=== PATIENT | female | born 1955 | race Caucasian/White ===

== ENCOUNTER 2022-04-02 02:45 | Emergency (ER) | payer MEDICARE ==
--- NOTE | 2022-04-02 02:49 | ERPHSYRPT ---
- History of Present Illness Time Seen by Provider: 04/02/22 02:48 Historian: patient, family Exam Limitations: no limitations Physician History: This is a 67-year-old overweight white female with a history of diabetes, elevated cholesterol and gastroesophageal reflux disease on Eliquis who presents with generalized abdominal pain but worse in the upper abdomen, that began at the time she was going to bed. She has never had anything like this before per her report. 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 Patient has associated nausea but no vomiting. She denies diarrhea. She does not have chest pain or shortness of breath. She has not had a fever. Timing/Duration: yesterday Activities at Onset: none Quality: aching, pressure Abdominal Pain Onset Location: generalized abdomen Severity of Pain-Max: moderate Severity of Pain-Current: moderate Associated Symptoms: nausea, No chest pain, No shortness of breath Previous symptoms: no prior history, no recent treatment Allergies/Adverse Reactions: No Known Drug Allergies Allergy (Verified 04/02/22 03:57) Home Medications: Albuterol Sulfate [Albuterol Sulfate Hfa] 2 puff PO Q4-6HPRN PRN 04/02/22 [History] Apixaban [Eliquis 5 mg Tablet] 1 tab PO BID 04/02/22 [History] Atorvastatin Calcium [Lipitor 40Mg] 1 tab PO HS 04/02/22 [History] Buspirone HCl 5 mg [Buspar 5 mg] 10 mg PO BID 04/02/22 [History] Cyclobenzaprine HCl 10 mg [Cyclobenzaprine 10 MG] 1 tab PO TID PRN 04/02/22 [History] Empagliflozin [Jardiance] 1 tab PO DAILY 04/02/22 [History] PANTOPRAZOLE 40 mg Tablet [Protonix 40MG Tablet] 1 tab PO DAILY 04/02/22 [History] Pregabalin [Lyrica] 1 cap PO BID 04/02/22 [History] atenoloL [Atenolol] 1 tab PO DAILY 04/02/22 [History] Travel Risk - International Travel Have you traveled outside of the country in past 3 weeks: No - Coronavirus Screening Are you exhibiting any of the following symptoms?: No Close contact with a COVID-19 positive Pt in past 14-21 Days: No - Review of Systems Constitutional: No Symptoms Eyes: No Symptoms Ears, Nose, & Throat: No Symptoms Respiratory: No Symptoms Cardiac: No Symptoms Abdominal/Gastrointestinal: Abdominal Pain, Nausea Genitourinary Symptoms: No Symptoms Musculoskeletal: No Symptoms Skin: No Symptoms Neurological: No Symptoms Psychological: No Symptoms Endocrine: No Symptoms Hematologic/Lymphatic: No Symptoms Immunological/Allergic: No Symptoms All Other Systems: Reviewed and Negative - Past Medical History Pertinent Past Medical History: Yes - Past Surgical History Past Surgical History: Yes - Nursing Vital Signs Nursing Vital Signs: Initial Vital Signs Temperature 97.7 F 04/02/22 03:07 Pulse Rate 69 04/02/22 03:07 Respiratory Rate 20 04/02/22 03:07 Blood Pressure 130/85 04/02/22 03:07 O2 Sat by Pulse Oximetry 99 04/02/22 03:07 Pain Scale Pain Intensity 10 - Physical Exam General Appearance: mild distress, alert, anxiety, obese Eye Exam: PERRL/EOMI, eyes nml inspection Ears, Nose, Throat Exam: normal ENT inspection, moist mucous membranes Neck Exam: normal inspection, non-tender, supple, full range of motion Respiratory Exam: normal breath sounds, lungs clear, airway intact, No chest tenderness, No respiratory distress Cardiovascular Exam: regular rate/rhythm, normal heart sounds, normal peripheral pulses Gastrointestinal/Abdomen Exam: soft, normal bowel sounds, tenderness (Genera lized), guarding (Generalized to palpation), No rebound Pelvic Exam: not done Rectal Exam: not done Back Exam: normal inspection, normal range of motion, No CVA tenderness, No vertebral tenderness Extremity Exam: normal inspection, normal range of motion, pelvis stable Neurologic Exam: alert, oriented x 3, cooperative, 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, normal mood/affect, nml cerebellar function, nml station & gait, sensation nml Skin Exam: normal color, warm, dry Lymphatic Exam: No adenopathy SpO2 Interpretation: normal O2 Delivery: Room Air - Course Nursing assessment & vital signs reviewed: Yes Ordered Tests: Active Orders 24 hr Category Date Time Status IV Insertion STAT Care 04/02/22 03:06 Active ABDOMEN AND PELVIS W/0 CONTRAS [CT] Stat Exams 04/02/22 03:20 Taken AMYLASE Stat Lab 04/02/22 03:28 Completed CBC W DIFF Stat Lab 04/02/22 03:28 Completed CMP Stat Lab 04/02/22 03:28 Completed CULTURE,URINE Stat Lab 04/02/22 03:28 Received LIPASE Stat Lab 04/02/22 03:28 Completed UA W/RFX CULTURE Stat Lab 04/02/22 03:28 Completed Medication Summary Discontinued Medications Generic Name Dose Route Start Last Admin Trade Name Bernardo PRN Reason Stop Dose Admin Hydromorphone HCl 0.5 mg 04/02/22 03:06 04/02/22 03:28 Hydromorphone 1 Mg/1ml Inj 1 Mg/Ml Syringe IV 04/02/22 03:07 0.5 mg STAT ONE Administration Hydromorphone HCl Confirm 04/02/22 03:17 Hydromorphone 1 Mg/1ml Inj 1 Mg/Ml Syringe Administered 04/02/22 03:18 Dose 1 mg .ROUTE .STK-MED ONE Hydromorphone HCl 0.5 mg 04/02/22 04:09 04/02/22 04:13 Hydromorphone 1 Mg/1ml Inj 1 Mg/Ml Syringe IV 04/02/22 04:10 0.5 mg STAT ONE Administration Hydromorphone HCl Confirm 04/02/22 04:12 Hydromorphone 1 Mg/1ml Inj 1 Mg/Ml Syringe Administered 04/02/22 04:13 Dose 1 mg .ROUTE .STK-MED ONE Sodium Chloride 1,000 mls @ 999 mls/hr 04/02/22 03:06 04/02/22 04:40 Sodium Chloride 0.9% 1000 Ml IV 04/02/22 04:06 Infused .Q1H1M STA Infusion Sodium Chloride Confirm 04/02/22 03:17 Sodium Chloride 0.9% 1000 Ml Administered 04/02/22 03:18 Dose 1,000 mls @ ud .ROUTE .STK-MED ONE Sodium Chloride 1,000 mls @ 999 mls/hr 04/02/22 05:10 04/02/22 05:18 Sodium Chloride 0.9% 1000 Ml IV 04/02/22 06:10 999 mls/hr .Q1H1M STA Administration Sodium Chloride Confirm 04/02/22 05:13 Sodium Chloride 0.9% 1000 Ml Administered 04/02/22 05:14 Dose 1,000 mls @ ud .ROUTE .STK-MED ONE Metronidazole Confirm 04/02/22 04:39 Metronidazole 500 Mg Tablet Administered 04/02/22 04:40 Dose 500 mg .ROUTE .STK-MED ONE Metronidazole 500 mg 04/02/22 04:41 04/02/22 04:42 Metronidazole 500 Mg Tablet PO 04/02/22 04:42 500 mg STAT ONE Administration Ondansetron HCl 4 mg 04/02/22 03:06 04/02/22 03:25 Ondansetron Hcl 4 Mg/2 Ml Vial IV 04/02/22 03:07 4 mg STAT ONE Administration Ondansetron HCl Confirm 04/02/22 03:17 Ondansetron Hcl 4 Mg/2 Ml Vial Administered 04/02/22 03:18 Dose 4 mg .ROUTE .[facility] ONE Lab/Rad Data: Laboratory Result Diagrams 04/02/22 03:28 04/02/22 03:28 Laboratory Results 04/02/22 04/02/22 04/02/22 Range/Units 03:28 03:28 03:28 WBC 8.8 (4.0-10.5) x10^3/uL RBC 4.60 (4.1-5.4) x10^6/uL Hgb 12.4 (12.0-16.0) g/dL Hct 39.6 (35-47) % MCV 86.1 (78-100) fL MCH 27.0 (26-32) pg MCHC 31.3 L (32-36) g/dL RDW 13.1 (11.5-14.0) % Plt Count 227 (150-450) x10^3/uL MPV 8.9 (7.5-11.0) fL Gran % 71.5 H (36.0-66.0) % Immature Gran % (Auto) 0.3 (0.00-0.4) % Nucleat RBC Rel Count 0.0 (0.00-0.1) % Eos # (Auto) 0.07 (0-0.5) x10^3/uL Immature Gran # (Auto) 0.03 (0.00-0.03) x10^3u/L Absolute Lymphs (auto) 1.72 (1.0-4.6) x10^3/uL Absolute Monos (auto) 0.67 (0.0-1.3) x10^3/uL Absolute Nucleated RBC 0.00 (0.00-0.01) x10^3u/L Lymphocytes % 19.5 L (24.0-44.0) % Monocytes % 7.6 (0.0-12.0) % Eosinophils % 0.8 (0.00-5.0) % Basophils % 0.3 (0.0-0.4) % Absolute Granulocytes 6.31 (1.4-6.9) x10^3/uL Basophils # 0.03 (0-0.4) x10^3/uL Sodium 141 (137-145) mmol/L Potassium 3.8 (3.5-5.1) mmol/L Chloride 104 (98-107) mmol/L Carbon Dioxide 31 H (22-30) mmol/L Anion Gap 9.8 (5-15) MEQ/L BUN 14 (7-17) mg/dL Creatinine 0.66 (0.52-1.04) mg/dL Estimated GFR > 60.0 ML/MIN Glucose 123 H (74-106) mg/dL Calcium 9.6 (8.4-10.2) mg/dL Total Bilirubin 1.10 (0.2-1.3) mg/dL AST 39 H (14-36) U/L ALT 52 H (0-35) U/L Alkaline Phosphatase 129 H (38-126) U/L Serum Total Protein 7.1 (6.3-8.2) g/dL Albumin 4.0 (3.5-5.0) g/dL Amylase 49 (30-110) U/L Lipase 57 (23-300) U/L Urinalys Dipstick Clnc MAIN LAB Urine Color YELLOW (YELLOW) Urine Appearance CLEAR (CLEAR) Urine pH 6.5 (5-6) Ur Specific [place] 1.015 (1.005-1.025) POC Urine Protein Conf NEGATIVE (Negative) Urine Ketones NEGATIVE (NEGATIVE) Urine Nitrite NEGATIVE (NEGATIVE) Urine Bilirubin NEGATIVE (NEGATIVE) Urine Urobilinogen 0.2 (0-1) mg/dL Urine Leukocytes SMALL (NEGATIVE) Urine WBC (Auto) 16-25 (0-5) /HPF Urine RBC (Auto) 3-5 (0-2) /HPF U Epithel Cells (Auto) NONE (FEW) /HPF Urine Bacteria (Auto) RARE (NEGATIVE) /HPF Urine RBC SMALL (0-5) Bubba/ul Urine Mucus (Auto) SLIGHT (NEGATIVE) /HPF Ur Culture Indicated? YES Urine Glucose 500 (NEGATIVE) mg/dL - Progress Progress: improved, pain not gone completely, re-examined Progress Note: 04/02/22 06:16 CAT scan of the abdomen pelvis shows enteritis without evidence of obstruction. There is some fluid in the pelvis. There is no evidence of any perforation or abscess. Counseled pt/family regarding: lab results, diagnosis, need for follow-up, rad results - Departure Departure Disposition: Home Clinical Impression: Enteritis, UTI (urinary tract infection) Condition: Stable Critical Care Time: No Referrals: JAYLIN BHARDWAJ FNP [Primary Care Provider] - Follow up/PCP as directed Additional Instructions: Drink plenty of fluids. Take your antibiotics as prescribed. Follow-up with your primary care physician for further evaluation management. Return to the emergency department if your symptoms worsen. Start off with clear liquid diet and slowly advance your diet to a regular diet. However, once at your regular diet, try to avoid fatty greasy spicy foods. Prescriptions: Ondansetron ODT 4 MG [Zofran Odt 4 mg] 4 mg PO Q6H PRN PRN #10 tablet PRN Reason: Vomiting Hydrocodone/APAP 5/325 [[place] 5/325 mg] 1 each PO Q8H PRN PRN #6 tablet MDD 3 PRN Reason: Pain Ciprofloxacin [Cipro 500 MG] 500 mg PO BID #14 tablet Metronidazole 500 mg [Flagyl 500 MG] 500 mg PO TID #21 tablet
[2022-04-02] MEDS ORDERED: Sodium Chloride 0.9% 1000 ML 1,000 ML IV STA ×2 (03:06→05:10)
[2022-04-02] MEDS ORDERED: Hydromorphone 1 mg/ml Injection IV ONE ×2 (03:06→04:09)
[2022-04-02] MEDS ORDERED: Zofran 4 MG/2 ML VIAL IV ONE (03:06)
[2022-04-02] MEDS ORDERED: Zofran 4 MG/2 ML VIAL ONE (03:17)
[2022-04-02] MEDS ORDERED: Hydromorphone 1 mg/ml Injection ONE ×2 (03:17→04:12)
[2022-04-02] MEDS ORDERED: Sodium Chloride 0.9% 1000 ML 1,000 ML ONE ×2 (03:17→05:13)
[2022-04-02 03:30] LABS: Absolute Neutrophil Ct (ANC) 6.31 x10^3/uL (1.4-6.9); Basophil (Absolute #) 0.03 x10^3/uL (0-0.4); Eosinophil % 0.8 % (0.00-5.0); Eosinophil (Absolute #) 0.07 x10^3/uL (0-0.5); Hematocrit 39.6 % (35-47); Hemoglobin 12.4 g/dL (12.0-16.0); Lymphocyte (Absolute #) 1.72 x10^3/uL (1.0-4.6); Lymphocytes % 19.5 % (24.0-44.0); Mean Cell Volume 86.1 fL (78-100); Mean Corpuscular Hgb Concent. 31.3 g/dL (32-36); Mean Platelet Volume 8.9 fL (7.5-11.0); Monocyte (Absolute #) 0.67 x10^3/uL (0.0-1.3); Monocytes % 7.6 % (0.0-12.0); Neutrophil % 71.5 % (36.0-66.0); Platelet Count 227 x10^3/uL (150-450); Red Cell Distribution Width 13.1 % (11.5-14.0); White Blood Count 8.8 x10^3/uL (4.0-10.5)
[2022-04-02 03:34] LABS: Appearance CLEAR (CLEAR); Bilirubin NEGATIVE (NEGATIVE); Dipstick done @ ? MAIN LAB; Glucose 500 mg/dL (NEGATIVE); Ketones NEGATIVE (NEGATIVE); Nitrite NEGATIVE (NEGATIVE); Ph 6.5 (5-6); Protein,Urine Dip NEGATIVE (Negative); RBC SMALL Ery/ul (0-5); Specific Gravity 1.015 (1.005-1.025); Urobilinogen 0.2 mg/dL (0-1)
[2022-04-02 03:37] LABS: Bacteria RARE /HPF (NEGATIVE); Mucus SLIGHT /HPF (NEGATIVE)
[2022-04-02 03:38] LABS: Urine Cultured Indicated? YES
[2022-04-02 03:44] LABS: ALKALINE PHOSPHATASE 129 U/L (38-126); AMYLASE 49 U/L (30-110); ANION GAP 9.8 MEQ/L (5-15); BLOOD UREA NITROGEN 14 mg/dL (7-17); CHLORIDE 104 mmol/L (98-107); Calcium 9.6 mg/dL (8.4-10.2); Carbon Dioxide 31 mmol/L (22-30); Creatinine 1 0.66 mg/dL (0.52-1.04); EST GLOMERULAR FILTRATION RATE > 60.0 ML/MIN; Glucose 123 mg/dL (74-106); LIPASE 57 U/L (23-300); Potassium 3.8 mmol/L (3.5-5.1); SGOT/AST 39 U/L (14-36); SGPT/ALT 52 U/L (0-35); SODIUM 141 mmol/L (137-145); Total Protein 7.1 g/dL (6.3-8.2)
[2022-04-02] MEDS ORDERED: Flagyl 500 MG ONE (04:39)
[2022-04-02] MEDS ORDERED: Flagyl 500 MG PO ONE (04:41)
[2022-04-02] MEDS ORDERED: NORCO 5/325 MG PO ONE ×2 (06:21→06:22)
[2022-04-02] MEDS ORDERED: Levofloxacin 500 MG Tablet PO ONE (06:21)
[2022-04-02] MEDS ORDERED: Levofloxacin 500 MG Tablet ONE (06:24)
[2022-04-02] MEDS ORDERED: NORCO 5/325 MG ONE (06:24)
[2022-04-02 06:31] VITALS: BP 111/65; PULSE 69; O2SAT 95
--- NOTE | 2022-04-02 08:06 | XRAY ---
Indication: General abdomen pain. Multiple contiguous axial images obtained through the abdomen and pelvis without contrast. Comparison: None Lung bases demonstrates minimal bilateral dependent atelectasis and small left lower lobe calcified granuloma. Heart not enlarged. Noncontrasted stomach and bowel loops appear nonobstructed. Appendix not visualized. Ileal bowel loops and terminal ileum demonstrates mild fluid distended with bowel wall thickening/stranding favoring enteritis. Crohn's disease can have a similar appearance. Tiny free fluid but no walled off fluid collection or free air. Scattered colonic diverticulosis. Previous hysterectomy and cholecystectomy. Diffuse fatty liver and tiny splenic calcified granulomas. Remaining liver, pancreas, spleen, adrenal glands, kidneys, ureters, and bladder are unremarkable for noncontrast exam. Minimal scattered aortic calcifications without AAA. Osseous structures intact with mild degenerative changes throughout the spine. Impression: 1. Fluid distended ileal bowel loops with bowel wall thickening/stranding including terminal ileum favoring enteritis. Crohn's disease also offered for clinical consideration. 2. Fatty liver, chronic bony findings, and old granulomatous disease. Comment: Preliminary interpretation made by [facility]. No critical discrepancy.
== END 2022-04-02 06:47 | disposition home or self-care (01) ==
LOC: ED 02:45
DX: K52.9 Noninfective gastroenteritis and colitis, unspecified (principal); N39.0 Urinary tract infection, site not specified; R10.84 Generalized abdominal pain; R11.0 Nausea; E11.9 Type 2 diabetes mellitus without complications; E78.5 Hyperlipidemia, unspecified; Z79.01 Long term (current) use of anticoagulants; Z79.84 Long term (current) use of oral hypoglycemic drugs; Z79.899 Other long term (current) drug therapy; Z79.891 Long term (current) use of opiate analgesic
CPT/HCPCS: 36000; 36415; 74176; 80053; 81015; 82150; 83690; 85025; 87086; 96374; 96375; 96376; 99284; J1170; J2405; A9270-GY